=== PATIENT | female | born 1990 | race Caucasian/White ===

== ENCOUNTER 2018-03-27 07:12 | Outpatient (CLI) | payer BC ==
[2018-03-27 07:28] LABS: Glucose,Whole Blood 86 mg/dL (75-99)
[2018-03-27 07:39] LABS: Appearance,Urine Cloudy (Clear); Bacteria,Urine Few /hpf; Bilirubin,Urine Negative (Negative); Blood,Urine Negative (Negative); Color,Urine Light Yellow; Glucose,Urine (UA) Negative (Negative); Ketones,Urine Negative (Negative); Leukocyte Esterase,Urine Negative (Negative); Nitrite,Urine Negative (Negative); Protein,Urine Negative (Negative); RBC,Urine 1 /hpf (0-5); Specific Gravity,Urine 1.006 (1.001-1.035); Squamous Epithelial Cell,Urine 8 /hpf (0-4); Urobilinogen,Urine <2.0 mg/dL (<2.0); WBC,Urine 2 /hpf (0-5)
== END 2018-03-27 08:15 | disposition home or self-care (01) ==
LOC: FBPOP 07:12
PROVIDERS: ATTEND Obstetrics & Gynecology
DX: O26.92 Pregnancy related conditions, unspecified, second trimester (principal); Z3A.26 26 weeks gestation of pregnancy
CPT/HCPCS: 81001; 99213

== ENCOUNTER 2018-03-27 08:08 | Emergency (ER) | payer BC ==
[2018-03-27 08:13] VITALS: RESP 18
[2018-03-27] MEDS ORDERED: SODIUM CHLORIDE 0.9% 1,000 ML IV STA (08:31)
[2018-03-27] MEDS ORDERED: METOCLOPRAMIDE 5 MG/ML 2 ML VIAL IVP STA (08:31)
--- NOTE | 2018-03-27 08:36 | ED ---
General Adult HPI - General Chief complaint: Dizziness Stated complaint: DIZZINESS Time Seen by Provider: 03/27/18 08:23 Source: patient, RN notes reviewed Mode of arrival: wheelchair Limitations: no limitations - History of Present Illness Initial comments: 27-year-old female presents emergency Department with chief complaint of headache. Patient states she woke up this morning and was dizzy. She states the room was spinning. Patient states he can become very nauseous and vomited. At that time she felt tingly all over. She states that immediately resolved. Patient states she is only left with a headache at this time. Patient states that she is A0 and currently 26 weeks . Patient went to labor and delivery this morning in which they did heart monitoring, blood glucose and urinalysis which was all within normal limits. Patient was sent down for further evaluation. Patient states she does have a history of migraines otherwise apply past medical history. Patient states she does not take any medicine for headache. Patient states that she has no chest pain or shortness breath no palpitations. She did talk to her DIE REPAIR that she's had some fluttering in her chest which he told this was normal with . - Related Data Home Medications Medication Instructions Recorded Confirmed Acetaminophen [Tylenol] 325 mg PO Q4H PRN 03/27/18 03/27/18 Pnv No.95/Ferrous Fum/Folic AC 1 tablet PO DAILY 03/27/18 03/27/18 [ Multivitamin Tablet] Allergies Allergy/AdvReac Type Severity Reaction Status Date / Time No Known Allergies Allergy Verified 03/27/18 08:09 Review of Systems ROS Statement: Those systems with pertinent positive or pertinent negative responses have been documented in the HPI. ROS Other: All systems not noted in ROS Statement are negative. Past Medical History Past Medical History: No Reported History History of Any Multi-Drug Resistant Organisms: None Reported Past Surgical History: Section Past Psychological History: No Psychological Hx Reported Smoking Status: Never smoker Past Alcohol Use History: None Reported Past Drug Use History: None Reported General Exam Limitations: no limitations General appearance: alert, in no apparent distress Head exam: Present: atraumatic, normocephalic, normal inspection Eye exam: Present: normal appearance, PERRL, EOMI. Absent: scleral icterus, conjunctival injection, periorbital swelling ENT exam: Present: normal exam, normal oropharynx, mucous membranes moist Neck exam: Present: normal inspection, full ROM. Absent: tenderness, meningismus, lymphadenopathy Respiratory exam: Present: normal lung sounds bilaterally. Absent: respiratory distress, wheezes, rales, rhonchi, stridor Cardiovascular Exam: Present: regular rate, normal rhythm, normal heart sounds. Absent: systolic murmur, diastolic murmur, rubs, gallop, clicks GI/Abdominal exam: Present: soft, normal bowel sounds. Absent: distended, tenderness, guarding, rebound, rigid Neurological exam: Present: alert, oriented X3, CN II-XII intact Skin exam: Present: warm, dry, intact, normal color. Absent: rash Course Vital Signs 03/27/18 08:09 Temperature 98 F Pulse Rate 82 Respiratory 18 Rate Blood Pressure 105/69 O2 Sat by Pulse 100 Oximetry - Reevaluation(s) Reevaluation #1: 03/27/18 10:28 Patient reevaluated and is symptom-free. EKG Findings - EKG Comments: EKG Findings:: EKG performed at 8:42 normal sinus rhythm with rate of 73 IL 150 QRS 92 QT/QTC 390/429 Medical Decision Making - Medical Decision Making 27 show female presented emergency from for episode of dizziness, nausea and headache. Symptoms have resolved. Patient was hydrated given acetaminophen. This may related to migraine-type headache with episode of vertigo. Patient will follow-up with PCP and return for any worsening symptoms. - Lab Data Result diagrams: 03/27/18 08:52 03/27/18 08:52 Lab Results 03/27/18 03/27/18 03/27/18 Range/Units 08:52 08:52 08:52 WBC 9.7 (3.8-10.6) k/uL RBC 3.78 L (3.80-5.40) m/uL Hgb 11.1 L (11.4-16.0) gm/dL Hct 33.6 L (34.0-46.0) % MCV 89.0 (80.0-100.0) fL MCH 29.3 (25.0-35.0) pg MCHC 33.0 (31.0-37.0) g/dL RDW 12.7 (11.5-15.5) % Plt Count 245 (150-450) k/uL Neutrophils % 78 % Lymphocytes % 17 % Monocytes % 3 % Eosinophils % 1 % Basophils % 0 % Neutrophils # 7.5 (1.3-7.7) k/uL Lymphocytes # 1.6 (1.0-4.8) k/uL Monocytes # 0.3 (0-1.0) k/uL Eosinophils # 0.1 (0-0.7) k/uL Basophils # 0.0 (0-0.2) k/uL Sodium 139 (137-145) mmol/L Potassium 4.1 (3.5-5.1) mmol/L Chloride 109 H (98-107) mmol/L Carbon Dioxide 21 L (22-30) mmol/L Anion Gap 9 mmol/L BUN 9 (7-17) mg/dL Creatinine 0.45 L (0.52-1.04) mg/dL Est GFR (CKD-EPI)AfAm >90 (>60 ml/min/1.73 sqM) Est GFR (CKD-EPI)NonAf >90 (>60 ml/min/1.73 sqM) Glucose 81 (74-99) mg/dL Calcium 9.1 (8.4-10.2) mg/dL Magnesium 1.7 (1.6-2.3) mg/dL Total Bilirubin 0.3 (0.2-1.3) mg/dL AST 26 (14-36) U/L ALT 19 (9-52) U/L Alkaline Phosphatase 67 (38-126) U/L Total Protein 6.7 (6.3-8.2) g/dL Albumin 3.5 (3.5-5.0) g/dL Disposition Clinical Impression: Headache, Vertigo, Disposition: HOME SELF-CARE Condition: Stable Instructions: Dizziness (ED) Additional Instructions: Please return to the Emergency Department if symptoms worsen or any other concerns. Is patient prescribed a controlled substance at d/c from ED?: No Referrals: Clarisse Hartman DO [Primary Care Provider] - 1-2 days Time of Disposition: 10:29
[2018-03-27] MEDS ORDERED: ACETAMINOPHEN IV (For NPO) 1,000 MG in EMPTY BAG 1 BAG IVPB STA (08:50)
[2018-03-27 09:12] LABS: Basophils % (A) 0 %; Eosinophils # (A) 0.1 k/uL (0-0.7); Eosinophils % (A) 1 %; HCT 33.6 % (34.0-46.0); HGB 11.1 gm/dL (11.4-16.0); Lymphocytes # (A) 1.6 k/uL (1.0-4.8); Lymphocytes % (A) 17 %; MCH 29.3 pg (25.0-35.0); Mean Platelet Volume 6.7; Monocytes # (A) 0.3 k/uL (0-1.0); Monocytes % (A) 3 %; Neutrophils # (A) 7.5 k/uL (1.3-7.7); Neutrophils % (A) 78 %; Platelet Count 245 k/uL (150-450); RBC 3.78 m/uL (3.80-5.40); RDW 12.7 % (11.5-15.5); WBC 9.7 k/uL (3.8-10.6)
[2018-03-27 09:22] LABS: ALT 19 U/L (9-52); AST 26 U/L (14-36); Albumin 3.5 g/dL (3.5-5.0); Alkaline Phosphatase 67 U/L (38-126); Anion Gap 9 mmol/L; Blood Urea Nitrogen 9 mg/dL (7-17); Calcium 9.1 mg/dL (8.4-10.2); Carbon Dioxide 21 mmol/L (22-30); Chloride 109 mmol/L (98-107); Glucose 81 mg/dL (74-99); Potassium 4.1 mmol/L (3.5-5.1); Sodium 139 mmol/L (137-145); Total Bilirubin 0.3 mg/dL (0.2-1.3); Total Protein 6.7 g/dL (6.3-8.2)
[2018-03-27 10:44] VITALS: BP 104/59; PULSE 89; TEMP 98.5
== END 2018-03-27 10:41 | disposition home or self-care (01) ==
LOC: EC 08:08
DX: O99.89 Other specified diseases and conditions complicating pregnancy, childbirth and the puerperium (principal); R42 Dizziness and giddiness; R51 Headache; Z86.69 Personal history of other diseases of the nervous system and sense organs; Z3A.26 26 weeks gestation of pregnancy; Z53.8 Procedure and treatment not carried out for other reasons
CPT/HCPCS: 36415; 80053; 83735; 85025; 99284; 96374; 96361; J0131

== ENCOUNTER 2018-06-29 08:04 | Inpatient (IN) | payer BC ==
[2018-06-29] MEDS ORDERED: ceFAZolin IN SWFI 2 GM/20 ML SYRINGE IVP ONE (08:21)
[2018-06-29] MEDS ORDERED: LACTATED RINGERS 1,000 ML IV ONE (08:21)
[2018-06-29] MEDS ORDERED: CITRIC ACID-SODIUM CITRATE 15 ML CUP PO ONE (08:21)
[2018-06-29 09:04] LABS: Basophils # (A) 0.1 k/uL (0-0.2); Basophils % (A) 0 %; Eosinophils # (A) 0.1 k/uL (0-0.7); Eosinophils % (A) 1 %; HCT 36.3 % (34.0-46.0); Lymphocytes # (A) 2.6 k/uL (1.0-4.8); Lymphocytes % (A) 19 %; MCH 29.8 pg (25.0-35.0); MCHC 33.1 g/dL (31.0-37.0); MCV 90.2 fL (80.0-100.0); Mean Platelet Volume 7.6; Monocytes # (A) 0.5 k/uL (0-1.0); Monocytes % (A) 4 %; Neutrophils # (A) 10.1 k/uL (1.3-7.7); Neutrophils % (A) 75 %; Platelet Count 241 k/uL (150-450); RBC 4.02 m/uL (3.80-5.40); RDW 13.2 % (11.5-15.5); WBC 13.4 k/uL (3.8-10.6)
[2018-06-29 09:11] VITALS: BMI 22.1
--- NOTE | 2018-06-29 09:26 | P.HPOB ---
History of Present Illness H&P Date: 06/29/18 Chief Complaint: 39 weeks, history of previous section This is a 27 year old 2 para 1001 woman with an estimated due date of who is 39 weeks gestation, history of previous low transverse section. She is admitted for repeat low transverse section and bilateral tubal ligation. She has declined a trial of labor after counseling. She and her desire no further pregnancies and after discussion of contraceptive options she elects for bilateral tubal ligation. Her has been otherwise uncomplicated and she has no complaints today. Obstetric history: 39 week primary low transverse section for acute placental abruption done under general anesthetic. 7 lbs. 3 oz. female . Laboratory data: Blood type O+, antibody screen negative, rubella immune, VDRL nonreactive, hepatitis B surface antigen negative, HIV negative, gonorrhea and clinic cultures negative, glucose tolerance testing within normal limits, group B strep cultures negative Review of Systems All systems: negative Past Medical History Past Medical History: No Reported History History of Any Multi-Drug Resistant Organisms: None Reported Past Surgical History: Section (2012) Past Anesthesia/Blood Transfusion Reactions: No Reported Reaction Past Psychological History: No Psychological Hx Reported Smoking Status: Never smoker Past Alcohol Use History: None Reported Past Drug Use History: None Reported - Past Family History Mother History Unknown: Yes Family Medical History: Diabetes Mellitus, Hypertension Medications and Allergies Home Medications Medication Instructions Recorded Confirmed Type Acetaminophen [Tylenol] 325 mg PO Q4H PRN 03/27/18 06/29/18 History Pnv No.95/Ferrous Fum/Folic AC 1 tablet PO DAILY 03/27/18 06/29/18 History [ Multivitamin Tablet] Ferrous Sulfate [Iron] 325 mg PO DAILY 06/29/18 06/29/18 History Allergies Allergy/AdvReac Type Severity Reaction Status Date / Time No Known Allergies Allergy Verified 03/27/18 08:09 Exam Vital Signs Temp Pulse Resp BP Pulse Ox 06/29/18 09:05 97.6 F 83 18 128/70 98 Intake and Output 06/28/18 06/29/18 06/29/18 22:59 06:59 14:59 Other: Weight 62.142 kg This is an anxious, visibly gravid female in no acute distress. HEENT exam unremarkable. Her breathing is unlabored and her heart is regular rate and rhythm. The abdomen is gravid with a fundal height consistent with a 39 week gestation. She history sore extremity edema. Pelvic examination is deferred. status is reassuring by external monitoring with irregular contractions. Results Result Diagrams: 06/29/18 08:30 Abnormal Lab Results - Last 24 Hours (Table) 06/29/18 Range/Units 08:30 WBC 13.4 H (3.8-10.6) k/uL Neutrophils # 10.1 H (1.3-7.7) k/uL Assessment and Plan (1) 39 weeks gestation of Current Visit: Yes Status: Acute Code(s): Z3A.39 - 39 WEEKS GESTATION OF SNOMED Code(s): 21021003 (2) Family planning Current Visit: Yes Status: Acute Code(s): Z30.09 - ENCOUNTER FOR [facility] CNSL AND ADVICE ON CONTRACEPTION SNOMED Code(s): 301306912 (3) History of Current Visit: Yes Status: Acute Code(s): Z98.891 - HISTORY OF UTERINE SCAR FROM PREVIOUS SURGERY SNOMED Code(s): 976712447 Plan: 27 are 2 para 1 woman at 39 weeks gestation with history of previous low transverse section who declines trial of labor. She and her desire permanent sterility and she will also have a bilateral tubal ligation with Filshie clips done at the time of her . She has been counseled regarding her options for contraceptives in the office setting and consent obtained. Risks of this procedure have also been reviewed with the patient in the office setting and confirmed today. Risks include bleeding, transfusion, infection, and/or maternal injury. Patient understands these risks and consent is obtained.
[2018-06-29] MEDS ORDERED: OXYTOCIN 10 UNIT/ML 1 ML VIAL ONE (09:38)
[2018-06-29] MEDS ORDERED: MORPHINE SULFATE (PF) 0.3 MG/0.3 ML SYR ONE (09:38)
[2018-06-29] MEDS ORDERED: KETOROLAC 30 MG/ML 1 ML VIAL ONE (09:38)
[2018-06-29] MEDS ORDERED: ONDANSETRON 4 MG/2 ML VIAL ONE (09:38)
[2018-06-29] MEDS ORDERED: DEXAMETHASONE SOD PHOS (MDV) 100 MG/10 ML VIAL ONE (09:38)
[2018-06-29] MEDS ORDERED: NALBUPHINE 10 MG/ML (1 ML AMP) ONE (09:38)
[2018-06-29] MEDS ORDERED: NALOXONE 0.4 MG/ML 1 ML VIAL IV PRN (10:22)
[2018-06-29] MEDS ORDERED: diphenhydrAMINE 25 MG CAP PO PRN (10:22)
[2018-06-29] MEDS ORDERED: ZOLPIDEM 5 MG TAB PO PRN (10:22)
[2018-06-29] MEDS ORDERED: METOCLOPRAMIDE 5 MG/ML 2 ML VIAL IVP PRN (10:22)
[2018-06-29] MEDS ORDERED: ONDANSETRON 4 MG/2 ML VIAL IVP PRN (10:22)
[2018-06-29] MEDS ORDERED: diphenhydrAMINE 50 MG/ML 1 ML VIAL IVP PRN ×2 (10:22)
[2018-06-29] MEDS ORDERED: diphenhydrAMINE 50 MG CAP PO PRN (10:22)
--- NOTE | 2018-06-29 10:26 | P.OP ---
Date of Procedure: 06/29/18 Preoperative Diagnosis: 39 weeks gestation History of previous low transverse section Desires permanent sterility Postoperative Diagnosis: Same Procedure(s) Performed: Repeat low transverse section and bilateral tubal ligation Anesthesia: spinal Surgeon: Montserrat William Wharf Laborer #1: Jo-Ann Garcia Estimated Blood Loss (ml): 400 IV fluids (ml): 1,200 Urine output (ml): 300 Pathology: none sent Condition: stable Disposition: floor Indications for Procedure: History of previous low transverse section, declines trial of labor Operative Findings: Male in the vertex presentation with Apgars of 9 at 1 minute and 9 at 5 minutes weighing 7 lbs. 13 oz., 3550 g. Normal-appearing uterus, bilateral fallopian tubes and ovaries. Description of Procedure: After the patient was met preoperatively and all questions were answered, she was taken to the operating room where spinal anesthetic was administered without incident. She was then positioned, prepped and draped in the dorsal supine position with a leftward tilt. Duncan catheter was placed. After anesthetic was confirmed adequate, a low transverse skin incision was made following the pre-existing scar. This was carried down to the underlying fascia both sharply and with the electrocautery. The fascia was then incised in the midline and extended bilaterally with the Gramajo scissors. The superior aspect of the fascial incision was elevated and the underlying rectus muscles dissected off sharply and with the electrocautery. The inferior aspect of the fascial incision was also elevated and the underlying rectus muscles dissected off sharply. The muscles were adherent in the midline. These were bluntly and the peritoneum was tented up with hemostats. The peritoneum was entered sharply with the Metzenbaum scissors. The peritoneal incision was extended inferiorly and superiorly with good visualization of the bladder. The bladder blade was placed. The vesicouterine peritoneum was identified, tented up and entered sharply, the bladder flap was created both sharply and digitally. A low transverse uterine incision was then made sharply and carried down to the underlying amniotic membranes. Membranes were ruptured and clear fluid was noted. The uterine incision was extended bilaterally bluntly. The infant's head was delivered from the incision without difficulty. The nose and mouth were bulb suctioned. The rest of the was delivered onto the field without difficulty. And cut and the infant was taken to the warmer. An intact , three-vessel cord placenta was then manually removed and the uterus was exteriorized. The uterus was cleared of all clot and debris. The uterine incision was delineated with Kenney clamps. The uterine incision was then closed in a running locked fashion with 0 Vicryl suture. Additional figure-of- eight sutures were placed where necessary along the incision for hemostasis. The right and left fallopian tubes were positively identified and carried out to the fimbriated ends. Filshie clip clips were then applied in the mid ampullary portion of the tubes completely transecting each tube. The uterus was then returned to the abdomen and the gutters were cleared of all clot and debris. The uterine incision was reinspected and Bovie electrocautery was utilized were necessary for hemostasis. The fascial edges, peritoneal edges and rectus muscles were inspected and Bovie electrocautery utilized were necessary for hemostasis. The fascia was then closed in a running fashion with 0 Vicryl suture. The subcuticular tissue was copiously suction irrigated and Bovie electrocautery utilized were necessary for hemostasis. 3-0 Vicryl suture was utilized to reapproximate the subcuticular tissue. The skin was then closed in a subcutaneous fashion with 4-0 Vicryl suture. All counts reported to me as correct by the operating room staff at the end of the procedure. The patient received antibiotics preoperatively and Pitocin following cord clamp. Mother and infant were both transported from the room in stable condition.
[2018-06-29] MEDS ORDERED: OXYTOCIN 20 UNITS/1000 ML NS 1,000 ML IV SCH (10:30)
[2018-06-29] MEDS ORDERED: ACETAMINOPHEN IV (For NPO) 1,000 MG in EMPTY BAG 1 BAG IVPB ONE (11:00)
[2018-06-29] MEDS: LACTATED RINGERS 1,000 ML IV SCH ×3 (12:58→19:26)
[2018-06-29] MEDS: SENNOSIDES-DOCUSATE SODIUM 1 EACH TAB PO SCH (19:32)
[2018-06-29] MEDS: KETOROLAC 30 MG/ML 1 ML VIAL IVP PRN (20:50)
[2018-06-30] MEDS: KETOROLAC 30 MG/ML 1 ML VIAL IVP PRN (03:25)
--- NOTE | 2018-06-30 05:50 | P.PNOBGPC ---
Subjective - Subjective Principal diagnosis: Repeat section and tubal ligation Patient reports: Reports appetite normal, Reports voiding normally, Reports pain well controlled, Reports ambulating normally, Denies dizzy ambulation : doing well, nursing well Objective - Vital Signs Latest vital signs: Vital Signs Temp Pulse Resp BP Pulse Ox 06/30/18 03:32 98.2 F 66 16 109/56 99 06/30/18 00:00 98.2 F 65 18 110/58 98 06/29/18 20:00 98.1 F 62 18 114/70 06/29/18 16:00 97.9 F 69 16 114/77 97 06/29/18 12:27 96.3 F L 61 18 100/61 99 06/29/18 11:57 61 18 108/58 100 06/29/18 11:27 63 18 106/63 98 06/29/18 11:12 97.2 F L 63 18 110/59 98 06/29/18 10:57 80 18 109/67 97 06/29/18 10:42 77 18 107/58 96 06/29/18 10:27 96.3 F L 74 18 102/49 97 06/29/18 09:05 97.6 F 83 18 128/70 98 Intake and Output 06/29/18 06/29/18 06/30/18 14:59 22:59 06:59 Output Total 600 Balance -600 Output: Urine 600 Other: Voiding Method Indwelling Catheter # Voids 1 1 Weight 62.142 kg - Exam Extremities: Present: normal Abdomen: Present: normal appearance, soft. Absent: tenderness Incision: Present: normal, dry, intact. Absent: erythematous Uterus: Present: normal, firm. Absent: tenderness - Labs Labs: Abnormal Lab Results - Last 24 Hours (Table) 06/29/18 Range/Units 08:30 WBC 13.4 H (3.8-10.6) k/uL Neutrophils # 10.1 H (1.3-7.7) k/uL Assessment and Plan (1) 39 weeks gestation of Current Visit: Yes Status: Acute Code(s): Z3A.39 - 39 WEEKS GESTATION OF SNOMED Code(s): 08910732 (2) Family planning Current Visit: Yes Status: Acute Code(s): Z30.09 - ENCOUNTER FOR OTH GENERAL CNSL AND ADVICE ON CONTRACEPTION SNOMED Code(s): 828456025 (3) History of Current Visit: Yes Status: Acute Code(s): Z98.891 - HISTORY OF UTERINE SCAR FROM PREVIOUS SURGERY SNOMED Code(s): 453503163 Plan: Postop day 1 status post repeat low transverse section and bilateral tubal ligation. Healing well. Routine care. Anticipate discharge home tomorrow.
[2018-06-30 07:30] LABS: Basophils # (A) 0.1 k/uL (0-0.2); Basophils % (A) 0 %; Eosinophils # (A) 0.1 k/uL (0-0.7); Eosinophils % (A) 0 %; HCT 32.2 % (34.0-46.0); HGB 10.6 gm/dL (11.4-16.0); Lymphocytes # (A) 3.2 k/uL (1.0-4.8); Lymphocytes % (A) 16 %; MCH 29.6 pg (25.0-35.0); MCHC 32.8 g/dL (31.0-37.0); MCV 90.3 fL (80.0-100.0); Mean Platelet Volume 7.4; Monocytes # (A) 0.8 k/uL (0-1.0); Monocytes % (A) 4 %; Neutrophils % (A) 78 %; Platelet Count 236 k/uL (150-450); RBC 3.57 m/uL (3.80-5.40); RDW 13.3 % (11.5-15.5); WBC 20.4 k/uL (3.8-10.6)
[2018-06-30] MEDS: SENNOSIDES-DOCUSATE SODIUM 1 EACH TAB PO SCH ×2 (08:10→20:01)
[2018-06-30] MEDS: IBUPROFEN 600 MG TAB PO PRN ×3 (08:15→21:19)
[2018-06-30] MEDS: HYDROcodone/APAP 5-325MG 1 EACH TAB PO PRN ×2 (12:00→23:24)
--- NOTE | 2018-06-30 12:51 | P.PN ---
Progress Note - Text 06/30 650am Date: Time: Patient is status post . Patient seen this morning with VAS score of 2.no c/o of pruritus, no c/o nausea/vomiting, comfortable and doing well.
[2018-06-30] MEDS ORDERED: SIMETHICONE 80 MG CHEWABLE PO SCH (13:00)
[2018-06-30] MEDS ORDERED: SIMETHICONE 80 MG CHEWABLE PO PRN (16:21)
[2018-06-30] MEDS: ACETAMINOPHEN TAB 325 MG TAB PO PRN (18:37)
[2018-07-01 00:23] VITALS: RESP 18
[2018-07-01] MEDS: IBUPROFEN 600 MG TAB PO PRN ×2 (06:38→13:50)
--- NOTE | 2018-07-01 08:23 | P.DS ---
Providers Date of admission: 06/29/18 08:04 Expected date of discharge: 07/01/18 Attending physician: Montserrat William Primary care physician: Clarisse Hartman - Discharge Diagnosis(es) (1) 39 weeks gestation of Current Visit: Yes Status: Acute (2) Family planning Current Visit: Yes Status: Acute (3) History of Current Visit: Yes Status: Acute Hospital Course: This is a 27-year-old 2 now para 2 woman who was admitted at 39 weeks gestation for planned repeat low transverse section and bilateral tubal ligation. She did on her to the operating room after admission where she under went an uncomplicated procedure. Findings at the time of surgery were significant for a male on the weighing 7 lbs. 13 oz. with Apgars of 9 at 1 minute and 9 at 5 minutes. Please see the operative report for details. The patient's postoperative course was unremarkable. By the morning of postoperative day #1 she was ambulating and voiding without difficulty and tolerating a general diet. Her incision appeared well healing. Her postoperative labs did show a slight increase in her WBCs and hemoglobin of 10.6. She had no fever or other localizing signs of infection. By postoperative day #2 she continued to do very well, remained afebrile. Her abdomen was soft and nontender and her incision was well healing. She had minimal vaginal bleeding. She was breast-feeding successfully. She was therefore discharged home with routine instructions for postoperative care and follow-up. Plan - Discharge Summary New Discharge Prescriptions: New Ibuprofen [Motrin] 600 mg PO Q6HR PRN #30 tab PRN Reason: Mild Pain Or Fever >= 100.5 No Action Acetaminophen [Tylenol] 325 mg PO Q4H PRN PRN Reason: Mild Pain Pnv No.95/Ferrous Fum/Folic AC [ Multivitamin Tablet] 1 tablet PO DAILY Ferrous Sulfate [Iron] 325 mg PO DAILY Discharge Medication List Acetaminophen [Tylenol] 325 mg PO Q4H PRN 03/27/18 [History] Pnv No.95/Ferrous Fum/Folic AC [ Multivitamin Tablet] 1 tablet PO DAILY 03/27/18 [History] Ferrous Sulfate [Iron] 325 mg PO DAILY 06/29/18 [History] Ibuprofen [Motrin] 600 mg PO Q6HR PRN #30 tab 07/01/18 [Rx] Follow up Appointment(s)/Referral(s): Montserrat William MD [STAFF PHYSICIAN] - 2 Weeks Activity/Diet/Wound Care/Special Instructions: Follow-up in 2 weeks after surgery in the office. Call the office with any concerning signs or symptoms including fever greater than 101, severe abdominal pain, heavy vaginal bleeding, signs of wound infection, increased swelling or redness of the lower extremities, signs of depression. No driving for 2 weeks after surgery. No heavy lifting or vigorous activity until reevaluated in the office. No intercourse for 6 weeks after delivery.
[2018-07-01] MEDS: ACETAMINOPHEN TAB 325 MG TAB PO PRN (10:03)
[2018-07-01] MEDS: SENNOSIDES-DOCUSATE SODIUM 1 EACH TAB PO SCH (10:03)
[2018-07-01 11:24] VITALS: BP 121/58; PULSE 69; TEMP 97.6
== END 2018-07-01 13:54 | disposition home or self-care (01) | DRG 785 ==
LOC: 4FBP 08:04
PROVIDERS: ADMIT Obstetrics & Gynecology; ATTEND Obstetrics & Gynecology
PROC: 0UB70ZZ Excision of Bilateral Fallopian Tubes, Open Approach (ICD-10-PCS; 2018-06-29)
PROC: 3E0234Z Introduction of Serum, Toxoid and Vaccine into Muscle, Percutaneous Approach (ICD-10-PCS; 2018-06-29)
PROC: 10D00Z1 Extraction of Products of Conception, Low, Open Approach (ICD-10-PCS; principal; 2018-06-29 10:00)
DX: O34.211 Maternal care for low transverse scar from previous cesarean delivery (principal); Z30.2 Encounter for sterilization; Z37.0 Single live birth; Z3A.39 39 weeks gestation of pregnancy; Z82.49 Family history of ischemic heart disease and other diseases of the circulatory system; Z83.3 Family history of diabetes mellitus; Z23 Encounter for immunization
CPT/HCPCS: 85025; 86850; 86900; 86901